=== PATIENT | female | born 1975 | race African-American/Black ===

== ENCOUNTER 2018-11-12 14:08 | Emergency (ER) | payer MEDICAID, SELFPAY ==
[2018-11-12 14:09] VITALS: BP 166/99; PULSE 105; RESP 20; TEMP 36.6; O2SAT 98; BMI 24.5
--- NOTE | 2018-11-12 14:31 | ED.VISSUMM ---
- ER Visit Summary Date of Service: 11/12/18 Chief Complaint: Abdominal pain History of Present Illness: The patient is a 43 F history of reflux, lupus, fibromyalgia, CAD with stents. Complaining of abdominal pain since last evening. Associated nausea vomiting and mild diarrhea. No hematemesis. No fever. No dysuria. No vaginal bleeding or discharge. Her last menstrual period was within the last week. She denies any abdominal trauma. She has had a prior tubal ligation and cholecystectomy. Physical Examination: Middle-aged female vital signs stable afebrile. She is in a position curled up in a ball lying in bed. Mom is at bedside. Patient does not look septic or toxic. H EENT exam mildly dry mixed membranes. Otherwise unremarkable. Neck nontender no lymphadenopathy. Lungs clear to auscultation bilaterally. Heart regular rhythm rate about 100 no murmur. Abdomen soft. Diffusely tender. Nondistended. No peritoneal signs. No signs of obstruction. No hernias or masses. Positive bowel sounds. No localizing McBurney's point tenderness. No right upper quadrant pain. Patient moving all 4 extremities. Calves are nontender. Neurologically she is awake and alert with no focal motor deficits. Skin is unremarkable. Back is nontender. Test Results: CBC shows a white count of 14. Hemoglobin 14. Electrolytes unremarkable sodium 133. Normal creatinine and gap. Liver enzymes normal. Lipase normal. UA negative. Serum test negative. Due to the elevated white count and her pain CT abdomen pelvis was obtained with IV contrast which is showed increasing stool. Also a stone in his right kidney but none acute ureteral calculi. Emergency Department Course and Treatment: Patient with abdominal pain with basically benign exam. She will be treated with IV Toradol and IV Phenergan. She also be given IV normal saline x1 L. Repeat exam patient is doing well at 1619. Abdomen is benign. She and I discussed all the test results. Treatment Plan: Magnesium citrate for constipation. Increase fluids and fiber. Disposition: Discharge Impression: Acute abdominal pain secondary to constipation This note was generated with [employer] dictation software. It may contain incorrect words, spelling, and punctuation that were not noted in review of the chart prior to signing ED Disposition - Plan for ED Patient: Referrals: Zack Kelly MD [Primary Care Provider] -
[2018-11-12] MEDS: Ketorolac 30 MG/ML Syringe IV (14:36)
[2018-11-12] MEDS: 0.9% Normal Saline 1,000 ML 1000 ML IV (14:36)
[2018-11-12] MEDS: proMETHazine 25 MG/ML Syringe 12.5 MG IV (14:36)
[2018-11-12 15:01] LABS: Absolute Lymphocyte Count 1.76 X10^3/ul (0.83-4.51); Absolute Neutrophil Count 11.9 X10^3/uL (2.0-7.7); Basophil# 0.01 X10^3/uL; Basophil% 0.1 % (0-1); Eosinophil# 0.01 X10^3/uL; Eosinophils% 0.1 % (0-5); Hematocrit 38.8 % (37-47); Lymphocyte # 1.76 X10^3/ul (4.0); Lymphocyte % 12.4 % (19-41); Mean Corp Hgb Conc 36.1 g/gl (32-36); Mean Corpuscular Hgb 25.7 pg (27.0-32.0); Mean Corpuscular Volume 71.2 fL (81-99); Mean Platelet Vol. 9.7 fl (6.2-12.0); Monocyte% 4.2 % (0-10); Neutrophil # 11.86 X10^3/uL (2.7-7.7); Neutrophil % 83.1 % (47-70); Platelet Count 407 K/mm3 (150-450); RBC Distribution Width CV 16.3 % (11.6-14.6); RBC Distribution Width SD 41.6 fl (35.1-43.9); Red Blood Count 5.45 M/mm3 (4.2-5.4); White Blood Count 14.3 K/mm3 (4.4-11.0)
[2018-11-12 15:02] LABS: POSITIVE COUNT NO; POSITIVE DIFFERENTIAL NO; POSITIVE MORPHOLOGY NO
[2018-11-12 15:05] LABS: Internal QC Validated? YES +Cl - CLEAR BKGD
[2018-11-12 15:10] LABS: Pregnancy, Serum, hCG Quali. NEGATIVE Negative
[2018-11-12 15:18] LABS: AST(SGOT) 19 U/L (15-37); Alanine Aminotransfer ALT/SGPT 23 U/L (13-56); Albumin, Serum 3.8 g/dL (3.2-5.0); Alkaline Phosphatase 87 U/L (45-117); Anion Gap 9 (5-15); BUN 6 mg/dL (7-18); BUN/Creat Ratio 8.8 RATIO (10-20); Bilirubin, Direct 0.28 mg/dL (0.00-0.30); Calcium,Total 9.4 mg/dL (8.5-10.1); Chloride 99 mmol/L (98-107); Creatinine, Serum 0.68 mg/dL (0.55-1.02); EST Glomerular Filtration Rate 100 mL/min (>60); Est Glom Filt Rate - Afr Amer 121 mL/min (>60); Estimated Creatinine Clearance 81.33 ml/min; Globulin 4.6 g/dL (2.2-4.2); Glucose 95 mg/dL (74-106); Lipase 66 U/L (73-393); Potassium 3.5 mmol/L (3.5-5.1); Protein, Total 8.4 g/dL (6.4-8.2); Sodium Level 133 mmol/L (136-145)
[2018-11-12 15:33] LABS: Color, Urine Yellow (Yellow); Glucose, Dipstick Normal (Normal); Leukocyte Esterase-Dipstick 25 /ul (Negative); Nitrite-Dipstick Negative (Negative); Occult Blood-Urine 10 /ul (Negative); Protein-Dipstick 30 mg/dl (Negative); Urine Clarity Sl. Cloudy (Clear); Urine Urobilinogen 4 mg/dl (Normal)
--- NOTE | 2018-11-12 15:33 | CT_ITS ---
STUDY: CT ABDOMEN AND PELVIS WITH CONTRAST REASON FOR EXAM: Female, 43 years old. Diffuse abdominal pain. RADIATION DOSAGE (If Supplied By Facility): CTDIvol = ( 7.74 ) mGy, DLP = ( 260.63 ) mGycm TECHNIQUE: Transaxial images were obtained from the dome of the diaphragm to the symphysis pubis without oral contrast. 100 IV Isovue 300 was administered. Sagittal and coronal images were reconstructed. Individualized dose optimization techniques were used for this CT. COMPARISON: None. FINDINGS: There is minimal right basilar dependent atelectasis. The visualized portions of the heart are within normal limits. Normal liver. There are surgical clips in the gallbladder fossa consistent with a prior cholecystectomy. Normal spleen. Normal pancreas. Normal bilateral adrenal glands. There are nonobstructing right renal calculi measuring up to 2.6 mm. Normal left kidney. Normal visualized stomach. Normal small intestine. There is a moderate amount of stool throughout the colon. The appendix appears to be within normal limits. There are a few peripheral calcifications of the abdominal aorta. Normal inferior vena cava. Normal retroperitoneum. Normal urinary bladder. There is an intrauterine device in place in a grossly satisfactory position. Normal abdominal wall. There are mild degenerative changes of the lumbar spine. CT/Abdomen/Pelvis W IV Cont ONLY IMPRESSION: Moderate amount of stool throughout the colon. Nonobstructing right renal calculi measuring up to 2.6 mm. Atherosclerosis. Electronically Signed: Kayy Rojas MD at 16:13 EDT Tel , Service support ,
[2018-11-12 15:34] LABS: Urine Bilirubin Dipstick 1 mg/dL (Negative)
[2018-11-12 15:39] LABS: Ketone-Dipstick 150 mg/dl (Negative)
[2018-11-12 15:45] LABS: Bacteria 2+ /hpf (None Seen); Mucous, Urine 1+ /hpf (<or=2+); Red Blood Cells-Urine 0-5 SEEN /hpf (0-5); Squamous Epithelial Cells - UA 0-5 SEEN /hpf (5-10); White Blood Cells 0-5 SEEN /hpf (0-5)
--- NOTE | 2018-11-12 16:22 | ED.DEP ---
ED Disposition - Plan for ED Patient: Disposition: Home or Assisted Living Instructions: ED Constipation Referrals: Zack Kelly MD [Primary Care Provider] - 3-5 Days if not improving Additional Instructions: Drink the entire bottle of magnesium citrate. This should cause no bowel movement. Plenty of fluids. Increase your fiber intake. Stool softener as needed. Follow-up with your doctor as needed return if worse.
[2018-11-12 16:23] VITALS: BP 134/102; PULSE 110; RESP 14; O2SAT 96
[2018-11-12] MEDS: Magnesium Citrate 300 ML 150 ML PO (16:23)
== END 2018-11-12 16:33 | disposition home or self-care (01) ==
PROVIDERS: Emergency Provider Emergency Medicine; Family Provider Family Medicine; PCP Family Medicine
DX: K59.00 Constipation, unspecified (principal); R10.84 Generalized abdominal pain; I25.10 Atherosclerotic heart disease of native coronary artery without angina pectoris; K21.9 Gastro-esophageal reflux disease without esophagitis; M79.7 Fibromyalgia; I25.2 Old myocardial infarction; M32.9 Systemic lupus erythematosus, unspecified; Z95.5 Presence of coronary angioplasty implant and graft; Z79.82 Long term (current) use of aspirin; Z79.899 Other long term (current) drug therapy
CPT/HCPCS: 74177; 80048; 80076; 81001; 83690; 84703; 85025; 96361; 96374; 96375; 99283; J7030; A4216

== ENCOUNTER 2019-01-07 14:46 | Emergency (ER) | payer MEDICAID, SELFPAY ==
[2019-01-07 14:47] VITALS: BP 114/59; PULSE 89; RESP 18; TEMP 36.2; O2SAT 99; BMI 23.8
--- NOTE | 2019-01-07 15:08 | ED.RN ---
BEFORE TRIAGING PT, PT BOYFRIEND RAN TO ER DESK STATING MY GIRLFRIEND IS IN THE CARE HAVING A HEART ATTACK SHE NEEDS HELP NOW, THIS RN AND PRIMARY CARE SALES REPRESENTATIVE WENT TO CAR TO ASSIST PT. PT INITIALLY NON RESPONSIVE TO STAFF VERBAL QUESTIONS AND STERNAL RUB. STAFF LIFTED PT OUT OF CAR, AND WHEN PT WAS SAT IN WHEELCHAIR SHE BEGAN TALKING AND REACHING FOR HER SANDALS. BROUGHT PT INTO TRIAGE ROOM, BEGAN ASKING PT QUESTIONS. PT ALERT, ORIENTED, AND QUICKLY RESPONDING. ASKED PT ABOUT ANY DRUG OR ALCOHOL USE, PT STATES I SOME SOME GREEN AND I HAVE A HISTORY OF A HEART ATTACK. LOOKS TO BOYFRIEND AND SAYS I HAVE PASSED OUT 3 TIMES SINCE WE BROKE UP. BOYFRIEND THEN STATES YOU WENT OUT AND I COULDN'T WAKE YOU UP AND I HAD TO CARRY YOU TO THE CAR. ADVISED BOTH PT AND BOYFRIEND THAT CALLING A SQUAD MAY HAVE BEEN BENEFICIAL FOR TIMELY PT CARE, ESPECIALLY IF IT IS HEART RELATED. PT THEN GOT UP OUT OF WHEELCHAIR AND STATES THAT I'M FINE, I DIDN'T COME HERE FOR ATTITUDE. I'M OK NOW. I'M GOING TO GO HOME AND SLEEP. INFORMED PT THAT WE WERE TRYING TO BE HELPFUL, NOT GIVE ATTITUDE AND PT CONTINUED TO WALK OUT OF ER STATING I'M FINE, I DON'T NEED TO BE SEEN ANYWAY. MULTIPLE STAFF WITNESSES TO PT WALKING OUT OF DEPARTMENT WITHOUT DIFFICULTY.
== END 2019-01-07 14:48 | disposition left against medical advice (07) ==
LOC: ED 15:01
PROVIDERS: Emergency Provider Emergency Medicine; Family Provider Family Medicine; PCP Family Medicine
DX: Z53.21 Procedure and treatment not carried out due to patient leaving prior to being seen by health care provider (principal)

== ENCOUNTER 2019-01-25 09:08 | Day surgery (SDC) | payer MEDICAID, SELFPAY ==
--- NOTE | 2019-01-02 08:30 | PCM.HP.BLA ---
History and Physical Date of Admission: 01/25/19 Pre-Op History and Physical HPI: The patient is a 43 year old female presenting for pre-operative visit. She is scheduled for hysteroscopy with Mirena IUD removal, and endometrial ablation, for menometrorrhagia on 01/25/19. Procedure discussed along with risks, benefits and complications. Other alternatives discussed for management. Consent form signed? Yes. PAST MEDICAL HISTORY Diagnosis Date ? Anemia, unspecified 12/1990 Admitted to [facility] with HB OF 3.8 ([facility] 8!!!) ? Closed fracture of unspecified bone x-ray 07/31Vickey L1 ? compression fx on x-ray ? Dysmenorrhea since menarche on depo post tubal to control ? Lupus erythematosus December, diagnosed from blood work; had rashes when off prednisone ? Myalgia and myositis, unspecified 2004 fibromyalgia dx'd at [facility] ? Other forms of migraine 1996 +/- resolved after moved back to [place] from [place] ? 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 Syncope and collapse age 15 anemia: blood transfusion PAST SURGICAL HISTORY Procedure Laterality Date ? EXTRACTION ERUPTED TOOTH/EXR young adult ? LAPAROSCOPIC CHOLEYCYSTECTOMY age 26 +/- Vickey Noonan ( ____) ? PAST SURGICAL HISTORY OF 03/02, [place] repair of torn posterior tibialis tendon, right ankle ? PAST SURGICAL HISTORY OF age 12 left supraorbital ridge cyst, age 10-11 ? TREAT ECTOPIC PREG,ABD PREG 04/03 Current Outpatient Medications Medication Sig Dispense Refill ? Levonorgestrel-Ethinyl Estrad (ALESSE) 0.1mg - 20mcg per tablet Take 1 tablet by mouth once daily for 21 days. 21 tablet 0 ? levonorgestrel (MIRENA) 20 mcg/24 hr (5 years) IUD 1 Each by INTRAUTERINE route one time only. ? aspirin, enteric coated (ASPIRIN, ENTERIC COATED) 81 mg EC tablet Take 81 mg by mouth once daily. ? cholecalciferol, vitamin D3, 50,000 unit tab Take by mouth. ? losartan (COZAAR) 50 mg tablet Take 50 mg by mouth once daily. ? GABAPENTIN 600 MG TAB 1 tablet twice daily 3 ? GABAPENTIN 300 MG CAP Take one(1) tablet daily at noon 0 ? Ranitidine HCl (ZANTAC) 300 mg ORAL Tab Take one(1) tablet twice daily. 60 2 ? PLAQUENIL 200 MG TAB Take one(1) tablet daily. 30 3 No current facility-administered medications for this visit. ALLERGIES: Patient has no known allergies. PERSONAL HISTORY: Social History Socioeconomic History Marital status: Spouse name: Not on file Number of children: 3 Years of education: 12 Highest education level: Not on file Occupational History Occupation: homemaker Social Needs Financial resource strain: Not on file Food insecurity: Worry: Not on file Inability: Not on file Transportation needs: Medical: Not on file Non-medical: Not on file Tobacco Use Smoking status: Current Every Day Smoker Packs/day: 1.00 Years: 12.00 Pack years: 12 Types: Cigarettes Smokeless tobacco: Never Used Substance and Sexual Activity Alcohol use: Yes Comment: occasionally Drug use: No Sexual activity: Not Currently Comment: Lifestyle Physical activity: Days per week: Not on file Minutes per session: Not on file Stress: Not on file Relationships Social connections: Talks on phone: Not on file Gets together: Not on file Attends yarsanism service: Not on file Active member of club or organization: Not on file Attends meetings of clubs or organizations: Not on file Relationship status: Not on file Intimate partner violence: Fear of current or ex partner: Not on file Emotionally abused: Not on file Physically abused: Not on file Forced sexual activity: Not on file Other Topics Concerns: Not on file Social History Narrative Not on file FAMILY HISTORY: FAMILY HISTORY Problem Relation Age of Onset ? None Mother ? Hypertension Father age 50+/- ? Prostate Cancer Father age late 50s ? Colon Cancer Other none ? Diabetes Other none ? Genitourinary () Maternal Aunt kidney failure (and cousins on mom's side) REVIEW OF SYMPTOMS: GENERAL: denies fevers or chills ENDOCRINOLOGY: has not been on steroids Cardiology : denies palpitations or chest pain Respiratory: denies SOB or cough Hematology: denies history of prolonged bleeding or easy bruising or VTE Allergy: Denies history of personal or family history of allergy to anesthesia PHYSICAL EXAMINATION: VITALS: There were no vitals taken for this visit. GENERAL: The patient is well nourished, well hydrated in no acute distress. , The patient is oriented to time, place, and person. NECK: Supple. No lynphadenopathy, normal thyroid, no thyromegaly. LUNGS: Clear to auscultation bilaterally. no wheezes, rhonchi or rales HEART: Regular rate and rhythm, Normal heart sounds and No murmurs or gallops GENITALIA: Normal external genitalia, Urethral meatus normal, Bladder nontender, normal vagina and normal vaginal tone, normal cervix, normal uterus, size and consistency, normal adnexa without masses or tenderness and perineum WNL PELVIC US done 10/17/18: Uterus size: 8.4 x 5.4 x 5.1 cm ?? ? -Orientation: Anteverted ?? ? -Myometrium: There is a anterior uterine fibroid measuring 3.0 x 2.6 x 2.8 cm (previously 2.6 x 2.3 x 2.4 cm), slightly increased. ?There is a posterior fundal fibroid measuring 1.5 x 1.4 x 0.9 cm (previously 1.5 x 1.3 x 0.8 cm), similar in size. ?? ? -Endometrial echo complex: 0.4 cm. ?An IUD is identified with nature canal in satisfactory sonographic positioning. ?? ? -Cervix: normal Right ovary: 3.0 x 2.6 x 1.1 cm ?Normal sonographic appearance. ? Arterial and venous flow is present throughout the ovary on color Doppler imaging with normal spectral waveforms. Left ovary: 2.7 x 2.3 x 1.2 cm ?Normal sonographic appearance with physiologic follicles. ? Vascular flow is documented to the ovary. Pelvis free fluid: None. EBM and pap done 01/01/19- pending IMPRESSION: metromenorrhagia, intramural uterine fibroid PLAN: The risks/benefits/alternatives and personal involved for the planned hysteroscopy with removal of mirena and endometrial ablation were reviewed with the patient. Her questions were answered to her satisfaction and she desires to proceed. Consent was signed. I reviewed with her postop instructions and expectations. I have reviewed and updated past medical and surgical history, medications and allergies Viridiana Su M.D.
[2019-01-25] VITALS (8 sets, daily range): BP systolic 145–169; BP diastolic 97–120; PULSE 74–98; RESP 14–18; TEMP 36.8–36.9; O2SAT 95–100; BMI 25.2
[2019-01-25] MEDS: Acetaminophen 500 MG Tablet 1000 MG PO (10:00)
[2019-01-25] MEDS: Lactated Ringers 1,000 ML 50 ML IV (10:23)
[2019-01-25] MEDS: Ketorolac 30 MG/ML Syringe IV (10:24)
--- NOTE | 2019-01-25 11:06 | DCINST_ITS ---
Discharge Diet: No Restrictions Discharge Activity: Return to Normal Activity, May Shower, May Take a Tub Bath - in 2 weeks. Return to work on:: 01/26/19 May shower in (days): 1 May resume sexual activity in: 2 weeks Lifting Restrictions: none Call your doctor if your incision/area has: Foul Smelling Discharge Call your doctor if you observe: Fever of 101 or Higher, Inability to urinate, Using more than one pad per hour - for 2 hrs in a row Allergies/Adverse Reactions: Allergies No Known Allergies Allergy (Verified 01/22/19 15:03) Medications to take at Discharge Aspirin [Aspir-Low] 81 mg PO DAILY 11/12/18 Clopidogrel Bisulfate [Clopidogrel] 1 tab PO DAILY 11/12/18 Ergocalciferol (Vitamin D2) [Vitamin D2] 1 cap PO QWEEK 11/12/18 Gabapentin 1 tab PO TID 11/12/18 Hydroxychloroquine [Plaquenil] 200 mg PO MOTUWETHFRSA 11/12/18 Losartan Potassium 1 tab PO DAILY 11/12/18 Omeprazole 1 cap PO DAILY 11/12/18 traMADol [Ultram] 50 mg PO Q6H PRN PRN #8 tablet 01/25/19 The following prescriptions were given: traMADol [Ultram] 50 mg PO Q6H PRN PRN #8 tablet PRN Reason: Severe Pain (6-1010) Transmission Status: Received by [facility]/pharmacy #[id number] Primary Care Physician: Care Physician,No Primary [Primary Care Provider] - Test Results: Test results from this visit will be discussed in further detail at your follow- up appointment, if applicable. Please Follow Up With: Viridiana Su MD - [phone] When: in 2-3 months if needed
--- NOTE | 2019-01-25 11:26 | PCM.OPRPT ---
Report of Operation Date of Procedure: 01/25/19 Pre-Operative Diagnosis: menorrhagia Post-Operative Diagnosis: same Surgery/Procedure Performed:: Hysteroscopy with Joleen endometrial ablation Description of Surgical Findings:: Normal-appearing cervix, vagina and endometrial cavity. scalper operator: None Type of Anesthesia:: MAC/Supplemental/Local Anesthesiologist: Oneal Stanley Special Medications: none Specimen's removed: none Drains: none Estimated Blood Loss (mL): 10 Fluids Replaced: LR Description of Procedure: The patient was taken to the OR where she was prepped and draped in dorsal lithotomy position. The weighted speculum was placed in the vagina and the anterior lip of the cervix was grasped with a single-tooth tenaculum. A paracervical block was administered with 1% lidocaine with 1-100,000 epinephrine solution. The cervix was dilated serially with Hegar dilators. The 5mm hysteroscope was placed into the uterine cavity and the above findings were noted. Bilateral tubal ostia were identified. The uterus sounded to 10cm and the cervical length was 4cm. The endometrial cavity length was 6cm. The hysteroscope was removed. The Joleen device was set to 6 cm. The instrument was then seated into the endometrial cavity and the indicator was in the green. The cervical seal balloon was inflated and the uterine integrity test was passed. The ablation procedure was initiated and completed without interruption. During the ablation procedure gentle traction was held on the tenaculum and the Joleen device was held up against the uterine fundus. When the ablation procedure was completed the Joleen was removed. The tenaculum was removed and the tenaculum site was noted to be hemostatic. All sponge and needle counts were correct. A vaginal sweep was performed by me. The patient was awakened and taken to the recovery room in stable condition. Hysteroscopic ins: 200cc normal saline Hysteroscopic outs:180cc Findings: Endometrial cavity: Normal, no fibroids or polyps noted Cervix: Normal Vagina: Normal Grafts/Implants Used: none - Complications none - Admit VTE Documentation VTE Present on Admission: No VTE Mechan Device Prophylaxis: SCD's VTE Pharm Prophylaxis ordered?: No Reason prophylaxis not ordered:: Procedure Not Indicated
--- NOTE | 2019-01-25 11:53 | EKG12_ITS ---
Test Reason : Blood Pressure : / mmHG Vent. Rate : 080 BPM Atrial Rate : 080 BPM P-R Int : 154 ms QRS Dur : 078 ms QT Int : 408 ms P-R-T Axes : 021 056 021 degrees QTc Int : 470 ms Normal sinus rhythm Nonspecific T- wave Abnormality Confirmed by BASILIO LOPES, CARSON ([id number]), supervising editor trailer CONY FULTON ([id number]) on 01/30/2019 12:09:27 PM Referred By: Viridiana Su Confirmed By:CARSON RICHMOND MD
[2019-01-25] MEDS: HYDROcodone Bitartrate/Apap 5/325 Tablet PO (12:15)
== END 2019-01-25 13:28 | disposition home or self-care (01) ==
LOC: SDC 09:12 → AC 09:13
PROVIDERS: Referring Provider Obstetrics & Gynecology; Visit Provider Obstetrics & Gynecology
PROC: 0U5B8ZZ Destruction of Endometrium, Via Natural or Artificial Opening Endoscopic (ICD-10-PCS; CPT 58558; principal; 2019-01-25 10:25)
DX: N92.0 Excessive and frequent menstruation with regular cycle (principal); D64.9 Anemia, unspecified; L93.0 Discoid lupus erythematosus; M79.7 Fibromyalgia; I10 Essential (primary) hypertension; K21.9 Gastro-esophageal reflux disease without esophagitis; F17.210 Nicotine dependence, cigarettes, uncomplicated; Z95.5 Presence of coronary angioplasty implant and graft; Z79.82 Long term (current) use of aspirin; Z79.02 Long term (current) use of antithrombotics/antiplatelets; Z79.899 Other long term (current) drug therapy
CPT/HCPCS: 58563; 93005; J7120

== ENCOUNTER 2021-04-13 21:55 | Emergency (ER) | payer MEDICAID, SELFPAY ==
[2021-04-13 21:59] VITALS: BP 151/100; PULSE 108; RESP 98; TEMP 36.9; O2SAT 100; BMI 25.5
--- NOTE | 2021-04-13 22:50 | RAD_ITS ---
EXAM: XR CHEST, 1 VIEW : 1975 CLINICAL INDICATION: cough TECHNIQUE: Frontal view of the chest. This report was created using [employer] report generation technology. COMPARISON: 10/20/12 FINDINGS: LUNGS AND PLEURAL SPACES: Unremarkable. No consolidation or edema. No pneumothorax. No effusion. HEART: Unremarkable. Cardiac silhouette not enlarged. MEDIASTINUM: Central airways and mediastinal contour are unremarkable. BONES/JOINTS: Unremarkable. SOFT TISSUES: Unremarkable. RAD/Chest 1 View (Portable) IMPRESSION: No radiographic evidence of acute cardiopulmonary disease. at 2340 Reported and signed by: Pepe Kemp MD Electronically Signed: Pepe Kemp MD at 23:39 EST Tel , Service support ,
--- NOTE | 2021-04-13 23:19 | EDS_ITS ---
HPI History of Present Illness Chief Complaint: General Illness Informant: patient Onset/Context/Timing Onset: Days (3 days) Context: Gradual Onset Current Severity: Mild Maximum Severity: Mild Narrative Narrative: Patient presents in the [facility] secondary to URI symptoms. She states of the past 3 days she has had nonproductive cough and some mild sneezing. She complains of runny nose. She denies fever or chills. She states there have been 2 Covid cases at the [facility]. She was also with another individual with similar URI symptoms who tested negative for Covid. [facility] Medical History Heart disease SLE (systemic lupus erythematosus) Home Medications clopidogrel 1 tab PO DAILY 11/12/18 [History Last Taken Unknown] amitriptyline 04/13/21 [History Last Taken Unknown] lisinopril 04/13/21 [History Last Taken Unknown] Allergy/AdvReac Type Severity Reaction Status Date / Time No Known Allergies Allergy Verified 04/13/21 22:03 Social History Smoking Status: Unknown if ever smoked ROS ROS ED Constitutional Constitutional ED: Denies chills or fever(s) Eyes Eyes: Denies change in vision ENT ENT ED: Reports rhinorrhea; Denies sore throat Cardiovascular Cardiovascular: Denies chest pain Respiratory/Chest Respiratory/Chest: Reports cough; Denies dyspnea Gastrointestinal Gastrointestinal: Denies abdominal pain, diarrhea, nausea or vomiting Genitourinary Genitourinary ED: Denies dysuria Musculoskeletal Musculoskeletal: Denies back pain Integumentary Denies rash Neurologic Neurologic: Denies headache(s) or weakness Allergic/Immunologic Allergic/Immunologic ED: Denies urticaria EXAM Physical Exam Const Vital Signs: 04/13/21 21:59 Temperature 98.5 F Temperature Source Oral Pulse Rate 108 H Respiratory Rate 98 H Blood Pressure 151/100 H Blood Pressure Mean 117 Pulse Ox 100 Oxygen Delivery Method Room Air Positive well nourished and well developed General Appearance ED: well developed HEENT Reports moist mucous membranes Eyes PERRL and EOMs intact bilaterally Neck no lymphadenopathy and supple Chest Wall inspection of chest normal Resp normal respiratory effort and clear to auscultation bilaterally Cardio regular rate and regular rhythm GI normal to inspection, nondistended, normoactive bowel sounds and non-tender Palpation: soft Extremity normal to inspection Neuro oriented x3 Sensorium / Orientation: alert Psych mental status grossly normal Skin no rashes or lesions noted MDM MDM MDM Narrative Medical decision making narrative: Chest x-ray and Covid test obtained. Radiography Diagnostic Testing: Clinical Impression(s) from Imaging Studies Chest X-Ray 04/13/21 22:50 IMPRESSION: No radiographic evidence of acute cardiopulmonary disease. at 2340 Reported and signed by: Pepe Kemp MD Electronically Signed: Pepe Kemp MD at 23:39 EST Tel , Service support , Covid: Negative Treatment and Re-Evaluation Comments:: Chest x-ray is unremarkable per my interpretation. Radiologist interpretation reviewed. Covid test is negative. Patient reassured with these findings and will continue supportive care. Discharge Plan Triage Chief Complaint: General Illness ED Provider: Colette De Souza Dx/Rx/DC Orders Clinical Impression: Viral URI Instructions: ED URI, Viral, No Abx (Adult) Prescriptions: No Action clopidogrel 75 tablet 1 tab PO DAILY RF: 0 amitriptyline 25 mg tablet RF: 0 lisinopril 10 mg tablet RF: 0 Primary Care Provider: Care Physician,No Primary Referrals: Coral Guillaume MD [STAFF PHYSICIAN] - As Needed Care Physician,No Primary [Primary Care Provider] - Disposition Disposition: Home, Self Care Discharge Date/Time: 04/14/21 00:15
== END 2021-04-14 00:15 | disposition home or self-care (01) ==
PROVIDERS: Emergency Provider Emergency Medicine
DX: J06.9 Acute upper respiratory infection, unspecified (principal)
CPT/HCPCS: 71045; 87426; 99284

== ENCOUNTER 2024-07-02 17:32 | Emergency (ER) | payer MEDICAID, SELFPAY ==
[2024-07-02 17:32] VITALS: PULSE 156; RESP 18; TEMP 36.5; O2SAT 99; BMI 26.2
--- NOTE | 2024-07-02 17:59 | EKG12_ITS ---
Test Reason : Blood Pressure : */* mmHG Vent. Rate : 145 BPM Atrial Rate : 145 BPM P-R Int : 156 ms QRS Dur : 96 ms QT Int : 306 ms P-R-T Axes : 63 57 110 degrees QTcB Int : 475 ms Critical Test Result: High HR Supraventricular tachycardia ST & T wave abnormality, consider lateral ischemia Abnormal ECG Confirmed by GRANT LOPES, MARINA ([id number]), social media editor DAVE GOMEZ ([id number]) on 07/03/2024 8:53:02 AM Referred By: TL/TB Confirmed By: MARINA BUNRS MD
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
[2024-07-02 18:06] LABS: Absolute Lymphocyte Count 3.83 X10^3/uL (0.83-4.51); Absolute Neutrophil Count 3.7 X10^3/uL (2.0-7.7); Basophil# 0.05 X10^3/uL; Basophil% 0.6 % (0-1); Eosinophil# 0.04 X10^3/uL; Eosinophils% 0.5 % (0-5); Hematocrit 39.3 % (37-47); Hemoglobin 13.6 g/dL (12.0-15.0); Lymphocyte # 3.83 X10^3/ul (0.83-4.51); Lymphocyte % 47.6 % (19-41); Mean Corp Hgb Conc 34.6 g/dL (32-36); Mean Corpuscular Hgb 25.5 pg (27.0-32.0); Mean Corpuscular Volume 73.6 fL (81-99); Mean Platelet Vol. 10.2 fl (6.2-12.0); Monocyte# 0.39 X10^3/uL; Monocyte% 4.9 % (0-10); NRBC Flagged by Analyzer 0 % (0-5); Platelet Count 426 K/mm3 (150-450); RBC Distribution Width CV 14.6 % (11.6-14.6); RBC Distribution Width SD 37.8 fl (35.1-43.9); Red Blood Count 5.34 M/mm3 (4.2-5.4)
[2024-07-02] MEDS: 0.9% Normal Saline (1000mL) 1,000 ML 999 ML IV (18:09)
[2024-07-02] MEDS: hydrOXYzine PAM 25 MG Capsule PO (18:10)
[2024-07-02 18:25] LABS: ALB/GLOB Ratio 0.8 RATIO (0.9-2.4); AST(SGOT) 18 U/L (15-37); Alanine Aminotransfer ALT/SGPT 21 U/L (13-56); Albumin, Serum 3.4 g/dL (3.2-5.0); Alkaline Phosphatase 73 U/L (45-117); Anion Gap 7 (5-15); BUN 10 mg/dL (7-18); BUN/Creat Ratio 11.7 RATIO (10-20); Calcium,Total 8.9 mg/dL (8.5-10.1); Chloride 111 mmol/L (98-107); Creatinine, Serum 0.86 mg/dL (0.55-1.02); EST Glomerular Filtration Rate 75 mL/min (>60); Est Glom Filt Rate - Afr Amer 91 mL/min (>60); Estimated Creatinine Clearance 70.78 ml/min; Globulin 4.3 g/dL (2.2-4.2); Glucose 126 mg/dL (74-106); Potassium 3.1 mmol/L (3.5-5.1); Protein, Total 7.7 g/dL (6.4-8.2); Sodium Level 143 mmol/L (136-145); Troponin-I HS 115 pg/mL (3.0-54.0)
[2024-07-02] MEDS: Adenosine 6 MG/2 ML Syringe IV (18:39)
[2024-07-02 18:43] VITALS: BP 126/79; PULSE 90; RESP 19; O2SAT 100
--- NOTE | 2024-07-02 18:46 | EKG12_ITS ---
Test Reason : RHYTHM CONVERSION Blood Pressure : */* mmHG Vent. Rate : 84 BPM Atrial Rate : 84 BPM P-R Int : 154 ms QRS Dur : 70 ms QT Int : 394 ms P-R-T Axes : 23 56 36 degrees QTcB Int : 465 ms Normal sinus rhythm Septal infarct , age undetermined Abnormal ECG Confirmed by GRANT LOPES, MARINA ([id number]), field map editor DAVE GOMEZ ([id number]) on 07/03/2024 8:53:14 AM Referred By: TL Confirmed By: MARINA BURNS MD
[2024-07-02 18:52] LABS: D-Dimer Quantitative (DVT/PE) 0.61 FEU/ug/m (0.27-0.49)
--- NOTE | 2024-07-02 18:52 | CT_ITS ---
PROCEDURE: CTA CHEST W/WO CONTRAST REASON FOR EXAM: Cough; dizzy. TECHNIQUE: CTA imaging of the chest with intravenous contrast. 3D reconstructions. COMPARISON: None. FINDINGS: Hardware: None. Lymph nodes: No mediastinal hilar or axillary lymphadenopathy. Heart: Normal heart size. No pericardial effusion. RV/LV Diameter Ratio: N/A Thoracic Aorta: No thoracic aortic aneurysm or dissection. Pulmonary Vessels: No evidence of acute pulmonary emboli through the major subsegmental branches. Most Proximal Level of Embolus (if embolus present): N/A Lungs and Airways: Minor fissure perifissural lymph node which are statistically overwhelmingly benign. The lungs are normally expanded and otherwise clear. Pleura: No pleural effusion. No pneumothorax. Upper Abdomen: Visualized portions of the upper abdominal viscera are unremarkable. Bones: Bone windows are unremarkable. CT/CTA Chest W/WO Contrast IMPRESSION: No pulmonary embolism. No acute chest abnormality. One or more dose reduction techniques were used (e.g., Automated exposure contr ol, adjustment of the mA and/or kV according to patient size, use of iterative reconstruction technique). Reading Location: [id number]
[2024-07-02 19:00] VITALS: BP 130/89; PULSE 99; RESP 20; O2SAT 100
[2024-07-02] MEDS: Aspirin 81 MG TAB.CHEW 324 MG PO (19:10)
[2024-07-02 19:25] VITALS: PULSE 91; RESP 18; O2SAT 95
[2024-07-02 19:29] LABS: Red Blood Cells-Urine 0 SEEN /hpf (0-5)
[2024-07-02 19:36] LABS: Color, Urine Yellow (Yellow); Glucose, Dipstick Normal (Normal); Ketone-Dipstick Negative (Negative); Leukocyte Esterase-Dipstick 25 /ul (Negative); Nitrite-Dipstick Negative (Negative); Occult Blood-Urine Negative /ul (Negative); Protein-Dipstick 30 mg/dl (Negative); Urine Bilirubin Dipstick Negative (Negative); Urine Clarity Clear (Clear); Urine Urobilinogen 4 mg/dl (Normal); Urine pH 6.5 (5.0 - 8.0)
[2024-07-02 19:44] LABS: Bacteria RARE /hpf (None Seen); Internal QC Validated? YES +Cl - CLEAR BKGD; Mucous, Urine 1+ /hpf (<or=2+); Pregnancy, Urine Negative Negative; Squamous Epithelial Cells - UA 0-5 SEEN /hpf (5-10); White Blood Cells 0-5 SEEN /hpf (0-5)
[2024-07-02 19:49] LABS: Amphetamine Urine POSITIVE (<1000 ng/mL); Barbiturate Urine VISTA NEGATIVE (< 200 ng/mL); Benzodiazepine Urine VISTA NEGATIVE (< 200 ng/mL); Cocaine Urine VISTA NEGATIVE (< 300 ng/mL); Ecstacy Urine VISTA POSITIVE (< 500 ng/mL); Methadone Urine VISTA NEGATIVE (< 300 ng/mL); PCP Urine VISTA NEGATIVE (< 25 ng/mL); THC Urine VISTA POSITIVE (< 50 ng/mL); Vista UDS pH Range 6
[2024-07-02 20:50] LABS: Troponin-I HS 147 pg/mL (3.0-54.0)
== END 2024-07-02 21:28 | disposition left against medical advice (07) ==
PROVIDERS: Nurse Practitioner; Emergency Provider Emergency Medicine; Visit Provider Emergency Medicine
DX: I21.4 Non-ST elevation (NSTEMI) myocardial infarction (principal); F19.10 Other psychoactive substance abuse, uncomplicated; M32.9 Systemic lupus erythematosus, unspecified; I47.10 Supraventricular tachycardia, unspecified; F41.9 Anxiety disorder, unspecified; I10 Essential (primary) hypertension; I25.10 Atherosclerotic heart disease of native coronary artery without angina pectoris; K02.9 Dental caries, unspecified; F17.210 Nicotine dependence, cigarettes, uncomplicated; Z59.00 Homelessness unspecified; Z95.5 Presence of coronary angioplasty implant and graft; Z79.02 Long term (current) use of antithrombotics/antiplatelets; Z79.899 Other long term (current) drug therapy; Z53.29 Procedure and treatment not carried out because of patient's decision for other reasons; Z91.199 Patient's noncompliance with other medical treatment and regimen due to unspecified reason; Z91.148 Patient's other noncompliance with medication regimen for other reason
CPT/HCPCS: 71275; 80053; 80307; 81001; 81025; 84484; 85025; 85379; 87631; 93005; 96361; 96374; 99285; Q9967; A4216; J0153